=== PATIENT | male | born 1945 | race Caucasian/White ===

== ENCOUNTER 2024-04-08 13:13 | Emergency (ER) | payer OTHER ==
[~2024-04-08] VITALS: Ht 162.6 cm; Wt 90.7 kg
[2024-04-08 13:14] VITALS: BP_SYST 158; PULSE 77; RESP 22; TEMP 98.3; O2SAT 98
[2024-04-08] MEDS ORDERED: LIP20 PO (13:32)
[2024-04-08] MEDS ORDERED: INSU100I34 SQ (13:32)
[2024-04-08] MEDS ORDERED: BRI.2% EACH EYE (13:32)
[2024-04-08] MEDS ORDERED: XALEYE OP (13:32)
[2024-04-08] MEDS ORDERED: INSU100V38 SQ (13:32)
[2024-04-08] MEDS ORDERED: DORZ10DR9 EACH EYE (13:32)
[2024-04-08] MEDS ORDERED: METO25TA3 PO (13:33)
[2024-04-08] MEDS ORDERED: LACO100T2 PO (13:33)
[2024-04-08] MEDS ORDERED: TAMS-11 PO (13:33)
[2024-04-08] MEDS ORDERED: AMLO5TAB4 PO (13:33)
[2024-04-08] MEDS ORDERED: ASPI-1077 PO (13:33)
[2024-04-08] MEDS ORDERED: LOSA-415 PO (13:33)
[2024-04-08 13:59] LABS: BASOPHILS # (AUTO) 0.1 K/uL (0.0-0.2); EOSINOPHILS # (AUTO) 0.4 K/uL (0.0-0.4); HEMATOCRIT 41.7 % (36-54)
[2024-04-08 14:00] LABS: PROTHROMBIN TIME 10.3 SECS (9.5-12.5)
[2024-04-08 14:02] LABS: EOSINOPHILS % (AUTO) 4.1 % (0.0-4.0); HEMOGLOBIN 13.9 g/dL (14.0-18.0); LYMPHOCYTES # (AUTO) 2.5 K/uL (1.0-5.5); LYMPHOCYTES % (AUTO) 24.8 % (20.5-51.5); MEAN CORPUSCULAR HEMOGLOBIN 34 pg (27-31); MEAN CORPUSCULAR HGB CONC 33 % (32-36); MEAN CORPUSCULAR VOLUME 100 fL (79.0-98.0); MONOCYTES # (AUTO) 0.9 K/uL (0.0-1.0); MONOCYTES % (AUTO) 9.4 % (1.7-9.3); NEUTROPHILS % (AUTO) 60.7 % (40.0-70.0); PLATELET COUNT (AUTO) 301 K/uL (130-430); RED BLOOD CELL COUNT(AUTO) 4.15 MIL/uL (4.2-6.2); RED CELL DISTRIBUTION WIDTH 13.6 % (9.0-15.0)
[2024-04-08 14:18] LABS: ALANINE AMINOTRANSFERASE 17 U/L (12-78); ALBUMIN 3.5 g/dL (3.4-4.8); ANION GAP 8 (5-15); ASPARTATE AMINOTRANSFERASE 15 U/L (10-37); BILIRUBIN,DIRECT 0.2 mg/dL (0.0-0.3); CALCIUM 8.1 mg/dL (8.4-11.0); CARBON DIOXIDE 28 mmol/L (23-29); CHLORIDE 98 mmol/L (98-107); CREATINE KINASE, TOTAL 164 U/L (39-308); CREATININE 1.31 mg/dL (0.55-1.30); GLUCOSE 244 mg/dL (74-106); POTASSIUM 4.1 mmol/L (3.5-5.1); SALICYLATE 2 mg/dL (3-30); SODIUM SERUM 134 mmol/L (136-145); TOTAL BILIRUBIN 0.5 mg/dL (0.0-1.0); TOTAL PROTEIN, SERUM 7.2 g/dL (6.4-8.3); UREA NITROGEN, BLOOD 16 mg/dL (8-21)
[2024-04-08 14:22] LABS: ACETAMINOPHEN < 1 ug/mL (1-30); ALCOHOL, BLOOD < 3 mg/dL (<10)
[2024-04-08 14:25] LABS: BILIRUBIN,URINE NEGATIVE (NEGATIVE); BLOOD, URINE NEGATIVE (NEGATIVE); CLARITY/URINE CLEAR (CLEAR); COLOR,URINE YELLOW (YELLOW); GLUCOSE,URINE 2+ (NEGATIVE); KETONES,URINE NEGATIVE (NEGATIVE); LEUKOCYTE ESTERASE ,URINE NEGATIVE (NEGATIVE); NITRITE, URINE NEGATIVE (NEGATIVE); PROTEIN URINE TRACE (NEGATIVE); UROBILINOGEN,URINE 0.2 (0.2-1.0)
[2024-04-08 14:29] LABS: BARBITURATE, URINE NEGATIVE (NEG <=200); BENZODIAZEPINE, URINE NEGATIVE (NEG <=150); CANNABINOID, URINE NEGATIVE (NEG <=50); COCAINE, URINE NEGATIVE (NEG <=150); METHAMPHETAMINES SCREEN,URINE NEGATIVE (NEG <=500); OPIATE, URINE NEGATIVE (NEG <=100); PHENCYCLIDINE SCREEN,URINE NEGATIVE (NEG <=25); UR TRICYCLIC ANTIDEPRESSANTS NEGATIVE (NEG <=300); URINE AMPHETAMINE NEGATIVE (NEG <=500); URINE METHADONE NEGATIVE (NEG <=200); URINE OXYCODONE SCREEN NEGATIVE (NEG <=100)
[2024-04-08 14:34] LABS: BACTERIA,URINE RARE /HPF (None Seen); RBC,URINE NONE SEEN /HPF (0-3); WBC,URINE 0-3 /HPF (0-3)
[2024-04-08 15:00] LABS: ACETONE, SERUM NEGATIVE (NEGATIVE)
[2024-04-08] MEDS ORDERED: VECURONIUM BROMIDE 10 MG/VIAL (NORCURON) ONE (15:00)
[2024-04-08] MEDS ORDERED: ETOMIDATE 20 MG/ 10 ML VIAL (AMIDATE) ONE (15:00)
[2024-04-08] MEDS: LABETALOL HCL 20 MG/4 ML CARTRIDGE IVP ONE (15:04)
[2024-04-08] MEDS: niCARdipine 25 MG in D5W 240 ML IV PRN (15:23)
[2024-04-08 15:43] VITALS: BP_SYST 145; PULSE 63; RESP 18; TEMP 98.3; O2SAT 99
== END 2024-04-08 15:40 | disposition home or self-care (01) ==
LOC: SED 13:13
DX: I61.8 Other nontraumatic intracerebral hemorrhage (principal); I11.0 Hypertensive heart disease with heart failure; I50.9 Heart failure, unspecified; E11.9 Type 2 diabetes mellitus without complications; G20.A1 Parkinson's disease without dyskinesia, without mention of fluctuations; Z79.899 Other long term (current) drug therapy; Z79.2 Long term (current) use of antibiotics
CPT/HCPCS: 99291; 31500; 96365; 71045; 70450; 96366; 96375; 80307; 80076; 80048; 82009; 82140; 82550; 85025; 85610; 85730; 84484; 36415; 83605; 82397; 81001; 93005; G0482; J7060; G0480; G0481; 81000; 81015; 94002; J3490